=== PATIENT | female | born 1970 | race Caucasian/White ===

== ENCOUNTER → 2016-11-12 | Outpatient (CLI) | payer OTHER ==
[~2016-11-12] MED LIST: IOHEXOL 300 MG/ML 75 ML VIAL IV ONE
--- NOTE | 2016-11-12 09:55 | RAD ---
CT of the abdomen and pelvis with and without contrast (CT urography), 11/12/2016: History: UTI, dysuria, blood in urine Multidetector CT imaging was performed prior to and following an IV bolus injection of iodinated contrast material. The postcontrast scans were obtained through the kidneys in a nephrographic phase and through the entire urinary tract in an excretory phase. 3-D MIP reconstructions were produced from the excretory phase data. No intrarenal calculi are identified. The renal collecting systems and ureters are not dilated. There is no evidence of a renal mass. No ureteral calculus is seen. Several pelvic calcifications are compatible with phleboliths. The urinary bladder is not well distended. No bladder abnormality is detected. No hepatic abnormality is detected. The gallbladder is unremarkable. No pancreatic abnormality is detected. The spleen is of normal size. The abdominal aorta is of normal caliber. No abdominal or pelvic adenopathy is seen. The uterine contour is slightly lobulated. The bowel loops are not dilated. No free fluid or free air is evident in the abdomen or pelvis. A small focus of sclerosis in the medial aspect of the left iliac bone is probably a bone island. IMPRESSION: No significant urinary tract abnormality is detected. PQRS Compliance Statement: One or more of the following individualized dose reduction techniques were utilized for this examination: 1. Automated exposure control 2. Adjustment of the mA and/or kV according to patient size 3. Use of iterative reconstruction technique
== END | disposition home or self-care (01) ==
LOC: CT 08:00
PROVIDERS: ATTEND Urology
DX: N39.0 Urinary tract infection, site not specified (principal); R30.0 Dysuria; R31.9 Hematuria, unspecified
CPT/HCPCS: 74178; Q9967

== ENCOUNTER → 2016-11-29 | Outpatient (CLI) | payer OTHER ==
[~2016-11-29] MED LIST changes: +BUPIVACAINE MPF 0.25% 10 ML VIAL. ONE; +HYDR-2758 PO; +IBUP200C9 PO; +IOHEXOL 180 MG/ML 10 ML VIAL. ONE; -IOHEXOL 300 MG/ML 75 ML VIAL IV ONE; +PARO30TA3 PO; +methylPREDNISolone ACETATE 40 MG/ML VIAL. ONE; +methylPREDNISolone ACETATE 80 MG/ML VIAL. ONE
== END | disposition home or self-care (01) ==
LOC: PNCL 07:28
PROVIDERS: ATTEND Anesthesiology
DX: M47.816 Spondylosis without myelopathy or radiculopathy, lumbar region (principal); F17.200 Nicotine dependence, unspecified, uncomplicated; M19.90 Unspecified osteoarthritis, unspecified site
CPT/HCPCS: 64493; 64494; J1030; J1040; J3490

== ENCOUNTER → 2017-02-21 | Outpatient (CLI) | payer OTHER ==
[~2017-02-21] MED LIST changes: -BUPIVACAINE MPF 0.25% 10 ML VIAL. ONE; -IOHEXOL 180 MG/ML 10 ML VIAL. ONE; -methylPREDNISolone ACETATE 40 MG/ML VIAL. ONE; -methylPREDNISolone ACETATE 80 MG/ML VIAL. ONE
--- NOTE | 2017-02-21 15:23 | RAD ---
CT of the paranasal sinuses without contrast, 02/21/2017: History: Chronic pansinusitis Noncontrast scans were obtained with multiplanar reconstructions produced. There is a density containing air bubbles in the posterior aspect of the right maxillary sinus compatible with mild inflammatory debris. There is only minimal underlying mucosal thickening in the right maxillary sinus. There is also minimal mucosal thickening involving the ethmoid sinuses and the ethmoid infundibulum of the ostiomeatal complexes. The frontal and sphenoid sinuses are unremarkable. There is moderate deviation of the nasal septum to the right of midline. The orbital contents are unremarkable. IMPRESSION: 1. Small amount of inflammatory debris in the right maxillary sinus. 2. Minimal mucosal thickening in the right maxillary and both ethmoid sinuses. 3. Moderate right deviation of the nasal septum. PQRS Compliance Statement: One or more of the following individualized dose reduction techniques were utilized for this examination: 1. Automated exposure control 2. Adjustment of the mA and/or kV according to patient size 3. Use of iterative reconstruction technique
== END | disposition home or self-care (01) ==
LOC: CT 09:48
PROVIDERS: ATTEND Otolaryngology
DX: J32.4 Chronic pansinusitis (principal); J34.2 Deviated nasal septum
CPT/HCPCS: 70486

== ENCOUNTER → 2017-05-19 | Outpatient (CLI) | payer OTHER ==
[~2017-05-19] MED LIST changes: +BUPIVACAINE MPF 0.25% 10 ML VIAL.; -HYDR-2758 PO; -IBUP200C9 PO; +IOHEXOL 180 MG/ML 10 ML VIAL.; -PARO30TA3 PO; +methylPREDNISolone ACETATE 40 MG/ML VIAL.; +methylPREDNISolone ACETATE 80 MG/ML VIAL.
== END | disposition home or self-care (01) ==
LOC: PNCL 07:49
DX: M47.817 Spondylosis without myelopathy or radiculopathy, lumbosacral region (principal)
CPT/HCPCS: 64493; 64494; J1030; J1040; J3490

== ENCOUNTER 2017-06-17 08:21 | Emergency (ER) | payer OTHER ==
[2017-06-17 08:43] LABS: CLARITY,URINE CLOUDY; GLUCOSE,URINE NEGATIVE (NEG); PROTEIN,URINE 100 mg/dL (NEG-TRACE)
[2017-06-17 08:44] LABS: NEG OBC UR NEG; POS OBC UR POS; U PREG PATIENT NEGATIVE (NEG)
[2017-06-17 08:49] LABS: COLOR,URINE ORANGE
[2017-06-17 08:50] LABS: SQUAMOUS EPITHELIAL CELL,UR MOD /LPF
[2017-06-17 08:51] LABS: BACTERIA,URINE MANY /HPF (0-FEW); RBC,URINE TNTC /HPF (0-2); WBC,URINE TNTC /HPF (0-4)
[2017-06-17] MEDS: traMADol 50 MG TABLET PO ×2 (09:04)
[2017-06-17] MEDS: cefTRIAXone IM 1 GM VIAL IM ×2 (09:04)
== END 2017-06-17 09:17 | disposition home or self-care (01) ==
LOC: ER 08:21
DX: N39.0 Urinary tract infection, site not specified (principal)
CPT/HCPCS: 81001; 81025; 87086; 96372; 99284-25; J0696

== ENCOUNTER → 2017-12-07 | Outpatient (CLI) | payer OTHER ==
[~2017-12-07] MED LIST changes: +LIDOCAINE 1% PF 2 ML VIAL.
== END | disposition home or self-care (01) ==
LOC: PNCL 10:58
DX: M47.817 Spondylosis without myelopathy or radiculopathy, lumbosacral region (principal); Z79.1 Long term (current) use of non-steroidal anti-inflammatories (NSAID); Z79.899 Other long term (current) drug therapy; Z79.2 Long term (current) use of antibiotics
CPT/HCPCS: 64493; 64494; J1030; J1040; J3490; Q9965

== ENCOUNTER → 2017-12-13 | Outpatient (CLI) | payer OTHER | END | disposition home or self-care (01) | LOC: CT 11:01 | DX: M43.16 Spondylolisthesis, lumbar region (principal); M54.16 Radiculopathy, lumbar region; Z79.01 Long term (current) use of anticoagulants; Z79.1 Long term (current) use of non-steroidal anti-inflammatories (NSAID); Z79.899 Other long term (current) drug therapy | CPT/HCPCS: 72131 ==

== ENCOUNTER → 2017-12-21 | Outpatient (CLI) | payer OTHER | END | disposition home or self-care (01) | LOC: PNCL 09:18 | DX: M47.897 Other spondylosis, lumbosacral region (principal) | CPT/HCPCS: 99212 ==